=== PATIENT | female | born 1980 | race Caucasian/White ===

== ENCOUNTER 2019-04-25 19:30 | Emergency (ER) | payer OTHER ==
[2019-04-25 19:44] VITALS: BP 108/90
--- NOTE | 2019-04-25 20:02 | ER Document Report ---
HPI - HPI Time Seen by Provider: 04/25/19 19:56 Pain Level: 2 - ROS Notes: CHIEF COMPLAINT: Cough and flulike symptoms HPI: 38-year-old female presenting to the emergency department complaining of cough and flulike symptoms. Patient has had cough for approximately 2 weeks at her PCP and finished a 10-day course of Augmentin approximately a week ago. Still with cough and developed chills and body ache last night. No dysuria. Patient denies shortness of breath. Patient denies other complaints at this time ROS: See HPI - all other systems were reviewed and are otherwise negative Constitutional: no fever Eyes: no drainage, no blurred vision ENT: no runny nose, no sore throat Cardiovascular: no chest pain Resp: no SOB, + cough GI: no vomiting, no diarrhea, no abdominal pain, positive nausea : no dysuria Integumentary: no rash Allergy: no hives Musculoskeletal: Positive myalgia Neurological: no numbness/tingling, no weakness MEDICATIONS: I agree with the patient medications as charted by the RN. ALLERGIES: I agree with the allergies as charted by the RN. PAST MEDICAL HISTORY/PAST SURGICAL HISTORY: Reviewed and agree as charted by RN. SOCIAL HISTORY: Reviewed and agree as charted by RN. FAMILY HISTORY: No significant familial comorbid conditions directly related to patient complaint EXAM: Reviewed vital signs as charted by RN. CONSTITUTIONAL: Alert and oriented and responds appropriately to questions. Well-appearing; well-nourished HEAD: Normocephalic; atraumatic EYES: PERRL; Conjunctivae clear, sclerae non-icteric ENT: normal nose; clear rhinorrhea; moist mucous membranes; pharynx without lesions noted, no uvula edema or deviation, no tonsillar hypertrophy, phonation normal NECK: Supple without meningismus; non-tender; no cervical lymphadenopathy, no masses CARD: RRR; no murmurs, no clicks, no rubs, no gallops; symmetric distal pulses RESP: Normal chest excursion without splinting or tachypnea; breath sounds clear and equal bilaterally; no wheezes, no rhonchi, no rales, pulse oximetry ABD/GI: Normal bowel sounds; non-distended; soft, non-tender, no rebound, no guarding; no palpable organomegaly or masses. BACK: The back appears normal and is non-tender to palpation, there is no CVA tenderness EXT: Normal ROM in all joints; non-tender to palpation; no cyanosis, no effusions, no edema SKIN: Normal color for age and race; warm; dry; good turgor; no acute lesions noted NEURO: Moves all extremities equally; Motor and sensory function intact PSYCH: The patient's mood and manner are appropriate. Grooming and personal hygiene are appropriate. MDM: 38-year-old female with upper respiratory symptoms. Finished a course of Augmentin 10 days ago still with coughing and spasm. Will place on prednisone, albuterol, Tessalon Perles, follow-up PCP. Given the recent antibiotic use no indication for imaging today. Did discuss flu testing which patient declines - REPRODUCTIVE Reproductive: DENIES: : Past Medical History - Social History Smoking Status: Never Smoker Chew tobacco use (# tins/day): No Frequency of alcohol use: Occasional Drug Abuse: None Family History: Reviewed & Not Pertinent Patient has suicidal ideation: No Patient has homicidal ideation: No Musculoskeletal Medical History: Denies Hx Fibromyalgia Traumatic Medical History: Reports: Hx Fractures - L1 FRACTURE 2003 - Immunizations Hx Diphtheria, Pertussis, Tetanus Vaccination: Yes - already received Vertical Provider Document - INFECTION CONTROL TRAVEL OUTSIDE OF THE [place] IN LAST 30 DAYS: No Course - Vital Signs Vital signs: Temp Pulse Resp BP Pulse Ox 98.2 F 102 H 16 108/90 H 98 04/25/19 19:42 04/25/19 19:42 04/25/19 19:42 04/25/19 19:42 04/25/19 19:42 Discharge - Discharge Clinical Impression: Influenza-like illness Condition: Stable Disposition: HOME, SELF-CARE Additional Instructions: 1. take the medications as prescribed 2. if you were prescribed an Albuterol inhaler, use it as instructed, 2 puffs every 4 hours as needed for cough/wheezing 3. call your primary care provider as soon as possible to schedule recheck appt. in the office. 4. return to the ED for any worsening condition, shortness of breath or continued fever that does not resolve with Motrin/Tylenol Prescriptions: Benzonatate [Tessalon Perles 100 mg Capsule] 100 mg PO Q8HP PRN #40 capsule PRN Reason: Prednisone [Deltasone 20 mg Tablet] 2 tab PO DAILY 5 Days #10 tablet Albuterol Sulfate [Proair HFA Inhalation Aerosol 8.5 gm MDI] 2 puff IH Q4H PRN #1 mdi PRN Reason: Referrals: GUSTAVO MERAZ MD [Primary Care Provider] - Follow up as needed
== END 2019-04-25 20:03 | disposition home or self-care (01) ==
LOC: ER 19:30
DX: J11.1 Influenza due to unidentified influenza virus with other respiratory manifestations (principal); R05 Cough; R68.83 Chills (without fever); M79.10 Myalgia, unspecified site; R25.2 Cramp and spasm
CPT/HCPCS: 99283